=== PATIENT | male | born 2000 | race Caucasian/White ===

== ENCOUNTER 2024-10-01 13:29 | Emergency (ER) | payer OTHER ==
[~2024-10-01] VITALS: Ht 193 cm; Wt 112.0 kg
[2024-10-01 18:54] VITALS: BP 144/92; TEMP 97.8; O2SAT 98
[2024-10-01 20:45] LABS: Trichomonas vaginalis (AMP) NOT DETECTED (NEGATIVE)
[2024-10-01] MEDS: KETOROLAC 60MG 2ML VIAL IM ONE (21:02)
[2024-10-01 21:09] LABS: GC DNA AMPLIFICATION NEGATIVE (NEGATIVE)
[2024-10-01] MEDS ORDERED: DOXY-441 PO (21:20)
[2024-10-01] MEDS ORDERED: IBUP-1022 PO (21:20)
[2024-10-01] MEDS: DOXYCYCLINE HYCLATE 100MG TABLET PO ONE (21:25)
[2024-10-01] MEDS: cefTRIAXone 500MG VIAL IM ONE (21:25)
[2024-10-01] MEDS: LIDOCAINE 1% SDV 5ML VIAL DILUENT ONE (21:25)
== END 2024-10-01 21:38 | disposition home or self-care (01) ==
LOC: M ED 13:29
DX: N50.3 Cyst of epididymis (principal); A74.9 Chlamydial infection, unspecified; I86.1 Scrotal varices; N45.2 Orchitis; N43.3 Hydrocele, unspecified; Z79.1 Long term (current) use of non-steroidal anti-inflammatories (NSAID); Z79.2 Long term (current) use of antibiotics
CPT/HCPCS: 76870; 81001; 87661; 87810; 87850; 93976; 96372; 99283; J0696; J1885